=== PATIENT | female | born 1985 | race Caucasian/White ===

== ENCOUNTER 2020-02-11 15:58 | Observation (INO) | payer OTHER, SELFPAY ==
[2020-02-11] MEDS ORDERED: KETOROLAC TROMETHAMINE INJ 30 MG/ML VIAL IV ONE (16:11)
[2020-02-11] MEDS ORDERED: SODIUM CHLORIDE 0.9% 1000ML 1,000 ML IVS ONE ×2 (16:11→18:27)
[2020-02-11] MEDS ORDERED: PIPERACILLIN/TAZOBACTAM 3.375 GM in SODIUM CHLORIDE 0.9% 100ML 100 ML IVPB ONE (17:02)
[2020-02-11] MEDS ORDERED: POTASSIUM CHLORIDE ELIXIR 20 MEQ/15 ML UD PO ONE (17:21)
--- NOTE | 2020-02-11 18:13 | CT ---
PROCEDURE: CT Abdomen and Pelvis With Intravenous Contrast CLINICAL INDICATION: The patient is 34 years years old, Female; 3d rlq pain, 17k wbc, dirty ua TECHNIQUE: Axial computed tomography images of the abdomen and pelvis with intravenous contrast. Sagittal and coronal reformatted images were created and reviewed. This CT exam was performed using one or more of the following dose reduction techniques: automated exposure control, adjustment of the mA and/or kV according to patient size, and/or use of iterative reconstruction technique. COMPARISON: No relevant prior studies available. FINDINGS: LUNG BASES: Unremarkable. No mass. No consolidation. No pleural effusions or pneumothoraces. PLEURAL SPACE: The visualized lung bases show no evidence of mass, gross consolidation, pleural effusions or pneumothoraces. ABDOMEN: LIVER: The liver is enlarged, measuring 22.3 cm longitudinally in the right lobe. There are no focal defects in the liver. There is no biliary ductal dilatation. GALLBLADDER AND BILE DUCTS: The gallbladder is absent status post cholecystectomy with surgical clips in the gallbladder fossa. PANCREAS: Unremarkable. No ductal dilatation, inflammatory changes or mass. SPLEEN: Unremarkable. No splenomegaly or focal defects. ADRENALS: Unremarkable. No mass or calcification. KIDNEYS AND URETERS: There are perfusion defects in the upper pole of the right kidney with slight reticulation in the perinephric fat superiorly and laterally concerning for acute pyelonephritis. There is also mild thickening and enhancement of the right ureter concerning for infection. There is no evidence of hydronephrosis or nephrolithiasis. STOMACH AND BOWEL: Fluid-filled colon suggests hypersecretion or poor colonic water resorption as may occur with nonspecific gastroenteritis/enteritis or colitis. Areas of mural thickening in the sigmoid colon and rectum may relate to nondistention versus nonspecific inflammatory changes. PELVIS: APPENDIX: The appendix is present and appears normal. There are no findings of acute appendicitis. BLADDER: Unremarkable, allowing for the degree of distention. There is no evidence of cystolithiasis or bladder mass. REPRODUCTIVE: Varicose appearing left periuterine veins may indicate pelvic congestion syndrome. ABDOMEN and PELVIS: INTRAPERITONEAL SPACE: There is no evidence of free air or free fluid. BONES/JOINTS: There is no evidence of acute fracture, osseous destruction or osteoblastic changes. SOFT TISSUES: Unremarkable. VASCULATURE: See above. LYMPH NODES: Unremarkable. There is no evidence of mesenteric, retroperitoneal, pelvic or inguinal adenopathy. TUBES, LINES AND DEVICES: The uterus is present and appears unremarkable with the exception of the presence of an intrauterine device. There are no adnexal cysts or masses. OTHER FINDINGS: The right periareolar region appears somewhat thickened. . IMPRESSION: 1. Findings concerning for acute right pyelonephritis and ureteritis. 2. Mild hepatomegaly. 3. Fluid-filled colon suggests hypersecretion or poor colonic water resorption as may occur with nonspecific gastroenteritis/enteritis or colitis. 4. Areas of mural thickening in the sigmoid colon and rectum may relate to nondistention versus nonspecific inflammatory changes. 5. The right periareolar region appears somewhat thickened. Recommend correlation with clinical exam and mammography if clinically indicated. Electronically signed by: Cynthia Seals MD 02/11/2020 6:11 PM CDT
[2020-02-11] MEDS ORDERED: levoFLOXacin 500MG IV 500 MG in PREMIX BAG 1 BAG IVPB ONE (18:27)
--- NOTE | 2020-02-11 18:41 | ED.PDOC ---
History of Present Illness - General Chief Complaint: Abdominal Pain Stated Complaint: DE [place],fever,constipation Time Seen by Provider: 02/11/20 16:06 Source: patient Exam Limitations: no limitations - History of Present Illness Initial Comments: 34 yo female with right abd pain for the last 4 days. no vomiting but mild nausea. decreased oral intake. no idarrhea, mild constipation. no recent illness. reports fever, diaphoretic here. Timing/Duration: other - 4d Severity: moderate Improving Factors: nothing Worsening Factors: nothing Associated Symptoms: fever/chills, loss of appetite, malaise Allergies/Adverse Reactions: Allergies NO KNOWN ALLERGY Allergy (Verified 02/11/20 16:13) Home Medications: Ambulatory Orders NK 02/11/20 Review of Systems - Review of Systems Constitutional: States: fever, malaise EENTM: States: no symptoms reported Respiratory: States: no symptoms reported Cardiology: States: no symptoms reported Gastrointestinal/Abdominal: States: abdominal pain, constipation, nausea Genitourinary: States: frequency Musculoskeletal: States: back pain Skin: States: no symptoms reported Neurological: States: no symptoms reported Endocrine: States: excessive sweating All other Systems: No Change from Baseline Past Medical History (General) - Patient Medical History Hx Stroke: No Hx Congestive Heart Failure: No Hx Diabetes: No Surgical History: cholecystectomy - Vaccination History Hx Influenza Vaccination: No - Social History Hx Tobacco Use: No - Female History Patient is a Female of Child Bearing Age (10 -59 yrs old): Yes - has an IUD Family Medical History - Family History Mother Family History: Unknown Living Status: Unknown Physical Exam - Physical Exam General Appearance: Alert, Ill Appearing Eye Exam: bilateral normal Ears, Nose, Throat: hearing grossly normal, normal pharynx Neck: full range of motion, supple Respiratory: lungs clear, normal breath sounds, no respiratory distress, no accessory muscle use Cardiovascular/Chest: normal peripheral pulses, regular rate, rhythm, no edema, other - i feel no defintie abnormal tissue of the right breast. no skin changes. no pain. Peripheral Pulses: radial,right: 2+, radial,left: 2+, dorsalis pedis,right: 2+, dorsalis pedis,left: 2+ Gastrointestinal/Abdominal: soft, other - diffues rt sided discomfort to palp. no palp mass. no guarding. 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, alert, normal mood/affect, oriented x 3 Skin Exam: normal color Comments: Vital Signs - 24 hr 02/11/20 02/11/20 02/11/20 16:08 17:00 18:04 Temperature 99.6 F Pulse Rate [ 93 H 80 80 Right Brachial] Respiratory 20 18 16 Rate Blood Pressure 113/71 101/64 95/63 [Right Arm] O2 Sat by Pulse 98 98 96 Oximetry Laboratory Tests 02/11/20 02/11/20 02/11/20 16:26 16:26 16:26 WBC 17.2 H RBC 4.08 L Hgb 13.1 Hct 37.9 MCV 92.9 MCH 32.1 H MCHC 34.6 RDW 12.8 Plt Count 198 MPV 9.0 Absolute Neuts (auto) 14.90 H Absolute Lymphs (auto) 0.80 L Absolute Monos (auto) 1.50 H Absolute Eos (auto) 0.00 Absolute Basos (auto) 0.10 Neutrophils % 86.5 H Lymphocytes % 4.7 L Monocytes % 8.4 Eosinophils % 0.0 L Basophils % 0.4 D-Dimer, Quantitative 954 H* Sodium 134 L Potassium 3.0 L Chloride 102 Carbon Dioxide 19 L Anion Gap 16.0 BUN 6 L Creatinine 0.87 BUN/Creatinine Ratio 6.9 L Random Glucose 105 Serum Osmolality 266.2 L Lactic Acid Calcium 8.7 Total Bilirubin 1.4 H AST 19 ALT 16 Alkaline Phosphatase 56 Creatine Kinase 199 H CK-MB (CK-2) 0.5 CK-MB (CK-2) % Not Reportable Troponin I < 0.02 Serum Total Protein 7.3 Albumin 3.5 Globulin 3.8 H Albumin/Globulin Ratio 0.9 L Amylase 38 Lipase 23 Serum HCG, Qual Urine Color Urine Appearance Urine pH Ur Specific [place] Urine Protein Urine Glucose (UA) Urine Ketones Urine Blood Urine Nitrite Urine Bilirubin Urine Urobilinogen Ur Leukocyte Esterase Urine RBC Urine WBC Ur Epithelial Cells Urine Bacteria 02/11/20 02/11/20 02/11/20 16:26 16:26 16:26 WBC RBC Hgb Hct MCV MCH MCHC RDW Plt Count MPV Absolute Neuts (auto) Absolute Lymphs (auto) Absolute Monos (auto) Absolute Eos (auto) Absolute Basos (auto) Neutrophils % Lymphocytes % Monocytes % Eosinophils % Basophils % D-Dimer, Quantitative Sodium Potassium Chloride Carbon Dioxide Anion Gap BUN Creatinine BUN/Creatinine Ratio Random Glucose Serum Osmolality Lactic Acid 0.9 Calcium Total Bilirubin AST ALT Alkaline Phosphatase Creatine Kinase CK-MB (CK-2) CK-MB (CK-2) % Troponin I Serum Total Protein Albumin Globulin Albumin/Globulin Ratio Amylase Lipase Serum HCG, Qual Negative Urine Color Yellow Urine Appearance Clear Urine pH 5.5 Ur Specific [place] 1.010 Urine Protein 30 Urine Glucose (UA) Negative Urine Ketones 80 H Urine Blood Moderate H Urine Nitrite Positive H Urine Bilirubin Negative Urine Urobilinogen 2.0 H Ur Leukocyte Esterase Trace H Urine RBC 10-20 H Urine WBC 3-5 H Ur Epithelial Cells 3-5 Urine Bacteria 1+ ct abd and pelvis with contrast shows right sided pyelo without defintie obstruction. sigmoid changes likely related to decompression. see report for details. Progress - Progress Progress: 02/11/20 18:44 34 yo female with rty sided pyelonephritis. early sepsis as well. receiving 2L ivf and started on zosyn and levaquin after cultures. admit for further monitoring and treatment. patient in agreement. treat hypokalemia as well. toradol worked well for pain x1. aleksandra bashir [id number] Departure - Departure Clinical Impression: Pyelonephritis, Hypokalemia Sepsis Qualifiers: Sepsis type: sepsis due to unspecified organism Sepsis acute organ dysfunction status: without acute organ dysfunction Qualified Code(s): A41.9 - Sepsis, unspecified organism Disposition: Admit Patient Departure Forms: ED Discharge - Pt. Copy, Patient Portal Self Enrollment Home Medications: Ambulatory Orders NK 02/11/20 Decision To Admit - Decistion To Admit Decision to Admit Reason: Medical Nature Decision to Admit Date: 02/11/20 Decision to Admit Time: 18:47
--- NOTE | 2020-02-11 19:52 | HP ---
SUPERVISING PHYSICIAN: Eze Maldonado MD CHIEF COMPLAINT: Left flank pain. HISTORY OF PRESENT ILLNESS: Ms. Orourke is a 34 year-old female patient who presented to the Emergency Room late last night complaining of right-sided abdominal pain extending from her right flank down into her pelvic area for the last 4 days. She denied any vomiting but had some mild nausea associate with it and has not been able to have much oral intake. She has no history of urinary tract infections, no significant medical history. Laboratory studies did show she had a significant urinary infection with positive nitrites, 10 to 20 RBCs, 3 to 5 WBCs with 1+ bacteria. CT of the abdomen and pelvis with contrast showed findings concerning for acute pyelonephritis ureteris with some mild hepatomegaly. She was given antibiotics in the Emergency Room including Levaquin and Zosyn. Additional laboratory studies showed she had a leukocytosis of 17,200 with a left shift. Chemistries showed a mild low potassium at 3.4, sodium 134, magnesium low at 1.6. Total bilirubin was a little elevated at 1.4. Other than that, liver functions were all within normal limits. Troponin less than 0.02, urine HCG was negative. Lipase and amylase were both normal. Given the findings concerning for pyelonephritis with the patient showing to just mildly febrile at 99.6 but hemodynamically stable with 113/70 blood pressure, mildly tachycardiac at 93, oxygen saturation 98% on room air, it was felt that she would benefit from initiation of IV antibiotics and further hydration in efforts to prevent complications due to sepsis due to pyelonephritis. She was admitted in stable condition. PAST MEDICAL HISTORY: No significant medical history mentioned. PAST SURGICAL HISTORY: 1. Cholecystectomy. 2. Left ankle repair. CURRENT MEDICATIONS: 1. IUD. No other chronic medication. ALLERGIES: No known drug allergies. FAMILY HISTORY: Noncontributory to current plan of care. SOCIAL HISTORY: The patient lives in [place], [place]. She is . She has 4 children. 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 She denies any tobacco use but admits she drinks fairly frequently throughout the week on a social occasion. She is single, she does have a boyfriend. REVIEW OF SYSTEMS: CONSTITUTIONAL: Positive for fever and general malaise, weakness. HEENT: She does have a headache but denies vision changes, sore throat. nasal congestion, earaches. CHEST: Denies shortness of breath, wheezing or coughing. HEART: Denies chest pain, palpitations, tachycardia or syncopal episodes. ABDOMEN: Positive for mild abdominal pain with left CVA tenderness and has problems with constipation, had some nausea, denies emesis. GENITOURINARY: Reports that she has had some increased frequency with some dysuria for the last 4 to 5 days. Denies discharges.. MUSCULOSKELETAL: Positive for right-sided back pain.. SKIN: Denies lesions, rashes, or unexplained changes. NEUROLOGIC: Denies ataxia, seizures, focal deficits. HEMATOLOGICAL: Denies unexplained bleeding, easy bruising or transfusion reactions. PHYSICAL EXAMINATION: VITAL SIGNS: Temperature initially on presentation was 99.6, pulse 93, blood pressure 113/71, respirations 20, oxygen saturation 98% on room air. GENERAL: Patient does appear ill-appearing and overall not feeling well but does not seem to be in any distress. She looks a little dehydrated but well- nourished. She is alert. HEENT: Tympanic membranes clear bilaterally. Oropharynx is pink with mildly dry mucous membranes. NECK: Supple, non-tender, full range of motion. No jugular venous distention. CHEST: Clear to auscultation bilaterally without rhonchi, rales, or wheezes. CARDIOVASCULAR: Regular rate and rhythm without appreciable murmurs, rubs, or gallops. ABDOMEN: Soft with some diffuse tenderness on the right side, more so with CVA tenderness with some discomfort on palpation in the pelvic area but no masses, no guarding, no rebound tenderness, no peritoneal signs. EXTREMITIES: No cyanosis, clubbing, or edema. BACK: Right-sided CVA tenderness. NEUROLOGIC: She is alert and oriented x3 with cranial nerves II through XII grossly intact. SKIN: Warm, pink and dry. RECTAL: Deferred. LABORATORY: White count 17,200 with a left shift. Coagulation showed an elevated D-dimer. Chemistries showed sodium 134, potassium 3.0, BUN 6, creatinine 0.87, magnesium 1.6, calcium 8.7, bilirubin slightly elevated at 1.4. Troponin less than 0.02. Lipase and amylase both normal. Urine HCG negative. Urine showed 80 of ketones with moderate amount of blood, positive nitrites with trace leukoprotease. Microscopic revealed 10 to 20 RBCs, 3 to 5 WBCs, 3 to 5 epithelials, 1+ bacteria. GC, Chlamydia, RNA testing pending on urine. MICROBIOLOGY: Urine cultures pending. Blood cultures. RADIOLOGY: Abdomen/pelvis CT with contrast per radiology interpretation showed findings concerning for acute right pyelonephritis and ureteritis with mild hepatomegaly. Please see report for full details. ASSESSMENT: 1. Urinary tract infection with uritis and acute pyelonephritis without any evidence of obstruction or abscess. Cultures pending. 2. Sepsis secondary to #1. 3. Ureteritis with patient having high risk factors for STDS with GC, Chlamydia pending. 4. Mild electrolyte imbalance in the form of hypokalemia and hyponatremia. 5. Elevated D-dimer with no signs of PE or low risk factors, likely elevated from ongoing infectious process in the form of pyelonephritis. PLAN: The patient is going to be admitted for treatment of pyelonephritis with Levaquin and given that she does have risk factors for possible STD and is age 34 and not , at this point we will go ahead and treat her with testing pending. I will give her one gram of azithromycin and Rocephin 250 mg IM. She will be on IV fluids. We will recheck labs in the morning. She will have Tylenol and Motrin for pain and fever control. I would anticipate her length of stay to be at least 2 to 3 days. She has no medications chronically. She will be on DVT prophylaxis per protocol. Until we can transition her to outpatient management, we will await final culture results and target antibiotic therapy as appropriate and continue to monitor and treat as needed #[id number] [facility]TDD
[2020-02-11] MEDS ORDERED: ONDANSETRON INJ 4 MG/2 ML VIAL IV PRN (21:08)
[2020-02-11] MEDS ORDERED: ALUM & MAG HYDROX-SIMETHICONE 30 ML UD PO PRN (21:08)
[2020-02-11] MEDS ORDERED: MAGNESIUM HYDROXIDE 30 ML UD PO PRN (21:08)
[2020-02-11] MEDS ORDERED: SODIUM CHLORIDE 0.9% (FLUSH) 10 ML SYG IV PRN (21:08)
[2020-02-11] MEDS ORDERED: IV SET AND CAP CHANGE INJ INJ SCH (21:30)
[2020-02-11] MEDS: KETOROLAC TROMETHAMINE INJ 30 MG/ML VIAL IV SCH (21:32)
[2020-02-11] MEDS: ENOXAPARIN SODIUM 40 MG/0.4 ML SYG SUBCU SCH (21:32)
[2020-02-11] MEDS: KCL 40MEQ/NS 1,000 ML IVS PRN (21:32)
[2020-02-11] MEDS ORDERED: MAGNESIUM SULFATE PREMIX 2GM 2 GM in PREMIX BAG 1 BAG IVPB ONE (23:00)
[2020-02-11] MEDS ORDERED: MAGNESIUM SULFATE PREMIX 2GM 50 ML IVPB ONE (23:26)
[2020-02-12] MEDS ORDERED: SODIUM CHLORIDE 0.9% 1000ML 1,000 ML ONE (00:39)
[2020-02-12] MEDS: KETOROLAC TROMETHAMINE INJ 30 MG/ML VIAL IV SCH ×4 (03:24→21:04)
[2020-02-12] MEDS: KCL 40MEQ/NS 1,000 ML IVS PRN (05:33)
[2020-02-12] MEDS: levoFLOXacin 750MG IV 750 MG in PREMIX BAG 1 BAG IVPB SCH (08:38)
[2020-02-12] MEDS: ACETAMINOPHEN 325 MG TAB PO PRN ×2 (10:26→18:46)
[2020-02-12] MEDS ORDERED: AZITHROMYCIN 250 MG TAB PO ONE (12:03)
[2020-02-12] MEDS ORDERED: SODIUM CHLORIDE 0.9% (FLUSH) 10 ML SYG IV ONE (12:04)
[2020-02-12] MEDS ORDERED: LIDOCAINE 1% 2 ML VIAL INJ ONE (13:16)
--- NOTE | 2020-02-12 19:59 | PN ---
SUPERVISING PHYSICIAN: Eze Maldonado MD DATE: 02/12/20 SUBJECTIVE: The patient is still having quite a bit of pain in her right flank pain. She says she certainly does not feel well. She has not actually had any nausea, but she has also had a mild headache in the frontal area. She said the Toradol did help. I did discuss with her that we will go ahead and put her on a little oxygen and see if this will also help with this migraine. She has had adequate p.o. intake. I discussed with her that we would saline lock her except for IV antibiotics as long as she has adequate intake. She has remained afebrile since admission with T-max 99.5. OBJECTIVE: VITAL SIGNS: Temperature 99.5, pulse 78, blood pressure 94/61, respirations 16, saturation 95% on room air. GENERAL: The patient does appear ill and tired, but does not look to be in any acute distress. CHEST: Lungs are clear to auscultation. HEART: Regular rate and rhythm. ABDOMEN: Soft with some continued CVA tenderness noted on the right, none on the left. NEUROLOGIC: Alert and oriented times three. LABORATORY: GC, chlamydia RNA still pending. Repeat CBC this morning showed white count down to 12,500 with persistent left shift, but no bands. Her chemistries now normalized potassium and sodium. BUN 6, creatinine 0.76, calcium 7.1 but her albumin is 2.7, so that should correct around 8.4. Liver functions all within normal limits. MICROBIOLOGY: Urine culture pending. Blood cultures pending. Preliminary culture results did show a gram negative bacilli. RADIOLOGY: No additional radiographic studies today. ASSESSMENT: 1. Urinary tract infection with uritis and acute pyelonephritis without any evidence of obstruction or abscess. Preliminary cultures showing a gram negative sotero, likely Escherichia coli, but again we will await culture results. 2. Sepsis secondary to #1, showing improvement with IV Levaquin. 3. Ureteritis with patient having high risk factors for STDs with GC, Chlamydia pending with treatment with p.o. azithromycin and IM Rocephin. 4. Electrolyte imbalance, now normalized. 5. Elevated D-dimer, likely due to ongoing infectious process and inflammatory marker from pyelonephritis. No evidence of any kind of pulmonary embolism on clinical assessment. 6. Frontal headache, resolving with Toradol and oxygen. PLAN: We will continue with current treatment plan at this point with Levaquin. She has had adequate IV fluids. At this point, we will saline lock her as long as she can continue with adequate p.o. intake. She is on DVT prophylaxis per protocol. I did treat her with Rocephin and azithromycin for the questionable GC and those tests are pending. We will plan to recheck labs in the morning. We will continue with Tylenol, Motrin and Toradol as needed for any pain control. As long as she is showing good resolution of her symptoms and we get culture back, I anticipate she could probably discharge in the next two to three days. Certain if she is not showing expected clinical improvement, we may need to re-image with ultrasound to make sure she has not formed an abscess. We will continue to monitor that daily. Until the patient can transition to outpatient management, we will continue to monitor and treat as needed. #[id number] [facility]
[2020-02-12] MEDS: ENOXAPARIN SODIUM 40 MG/0.4 ML SYG SUBCU SCH (21:04)
[2020-02-13] MEDS: KETOROLAC TROMETHAMINE INJ 30 MG/ML VIAL IV SCH ×2 (03:35→08:30)
[2020-02-13] MEDS: levoFLOXacin 750MG IV 750 MG in PREMIX BAG 1 BAG IVPB SCH (08:26)
--- NOTE | 2020-02-13 11:29 | US ---
EXAM DESCRIPTION: Renal: Ultrasound. CLINICAL HISTORY: 34 years Female pyelo COMPARISON: Abdominal pelvic CT scan February 11, 2020. TECHNIQUE: Transcutaneous scanning: Two-dimensional and Doppler modes. FINDINGS: Right kidney measures 12.2 x 5.6 x 6.4 cm; volume 229.5 mL. Partially duplicated. Mid-renal cortical thickness 11 mm. . Heterogeneous echogenicity equal to the liver, with intermediate echoes extending to the capsule.. No hydronephrosis No echogenic stones. Lobulated contour of the kidney with no perinephric fluid. Normal vascularity. Proximal ureter not visualized.. Left kidney measures 10.7 x 6.3 x 6.2 cm; volume 217 mL. Partially duplicated. Mid-renal cortical thickness 14 mm.. Normal echogenicity. No hydronephrosis. No echogenic stones. Lobulated contour of the kidney with no perinephric fluid. Normal vascularity.. Proximal ureter not visualized.. Urinary bladder was visualized. Prevoid volume of bladder 107.3 mL. Ureteral jet in the bladder not seen by Doppler. Patient did not void. Abdominal aorta: Normal caliber from the proximal segment to the distal bifurcation with atherosclerotic changes. IMPRESSION: 1. Medical renal disease bilateral kidneys more right than left. Both kidneys partially duplicated. No mass, no complex cyst, but heterogeneous right renal cortical lesions extending to the capsule could represent pyelonephritis. No cortical lesions in the left kidney. No hydronephrosis or renal calcifications bilaterally. Proximal ureters not seen. 2. Minimal fluid in the urinary bladder. Patient did not void. Normal caliber of the abdominal aorta.. Electronically signed by: Matthieu Montenegro MD 02/13/2020 11:28 AM CDT
[2020-02-13] MEDS: ACETAMINOPHEN 325 MG TAB PO PRN (12:19)
[2020-02-13] MEDS ORDERED: traMADol HCL 50 MG TAB PO ONE (12:29)
[2020-02-13 13:01] VITALS: BP 99/59; TEMP 98.3; O2SAT 98
--- NOTE | 2020-02-13 14:32 | DS ---
SUPERVISING PHYSICIAN: Eze Maldonado MD ADMISSION DIAGNOSIS: 1. Urinary tract infection with uritis and acute pyelonephritis without any evidence of obstruction or abscess. Cultures pending. 2. Sepsis secondary to #1. 3. Ureteritis with patient having high risk factors for STDs with GC, Chlamydia pending. 4. Mild electrolyte imbalance in the form of hypokalemia and hyponatremia. 5. Elevated D-dimer with no signs of PE or low risk factors, likely elevated from ongoing infectious process in the form of pyelonephritis. DISCHARGE DIAGNOSIS: 1. Urinary tract infection with uritis and acute pyelonephritis without any evidence of obstruction or abscess. Preliminary cultures showing a gram negative sotero, likely Escherichia coli, but again we will await culture results. 2. Sepsis secondary to #1, showing improvement with IV Levaquin. 3. Ureteritis with patient having high risk factors for STDs with GC, Chlamydia pending with treatment with p.o. azithromycin and IM Rocephin. 4. Electrolyte imbalance, now normalized. 5. Elevated D-dimer, likely due to ongoing infectious process and inflammatory marker from pyelonephritis. No evidence of any kind of pulmonary embolism on clinical assessment. 6. Frontal headache, resolving with Toradol and oxygen. HISTORY OF PRESENT ILLNESS: Ms. Griffin is a 34 year-old female patient who presented to the Emergency Room late last night complaining of right-sided abdominal pain extending from her right flank down into her pelvic area for the last 4 days. She denied any vomiting but had some mild nausea associate with it and has not been able to have much oral intake. She has no history of urinary tract infections, no significant medical history. Laboratory studies did show she had a significant urinary infection with positive nitrites, 10 to 20 RBCs, 3 to 5 WBCs with 1+ bacteria. CT of the abdomen and pelvis with contrast showed findings concerning for acute pyelonephritis ureteris with some mild hepatomegaly. She was given antibiotics in the Emergency Room including Levaquin and Zosyn. Additional laboratory studies showed she had a leukocytosis of 17,200 with a left shift. Chemistries showed a mild low potassium at 3.4, sodium 134, magnesium low at 1.6. Total bilirubin was a little elevated at 1.4. Other than that, liver functions were all within normal limits. Troponin less than 0.02, urine HCG was negative. Lipase and amylase were both normal. Given the findings concerning for pyelonephritis with the patient showing to just mildly febrile at 99.6 but hemodynamically stable with 113/70 blood pressure, mildly tachycardiac at 93, oxygen saturation 98% on room air, it was felt that she would benefit from initiation of IV antibiotics and further hydration in efforts to prevent complications due to sepsis due to pyelonephritis. She was admitted in stable condition. HOSPITAL COURSE: The patient was admitted for treatment of pyelonephritis with Levaquin and due to her increased risk factors for possible STDs, she was treated with azithromycin and Rocephin. She was given IV fluids. Her labs was watched closely. She was put on Lovenox for DVT prophylaxis. She did complain of a headache, but they were relieved with Tylenol, Toradol and tramadol. Her pain improved significantly. Her STD panel and her urine culture are both pending as well as her blood cultures. She will be discharged home today in stable condition. LABORATORY: WBCs started at 17,200 and have normalized to 8.9 with stable hemoglobin of 11.1 and hematocrit 32.4. There is no left shift on her differential. Her electrolytes are basically within normal limits. She did have a low magnesium initially and received supplementation and it has come up to 1.8. Calcium is slightly low at 7.7. GC Chlamydia are pending. Cultures are pending. Renal ultrasound from today shows 1) Medical renal disease bilateral kidneys, more right than left. Both kidneys partially duplicated. No mass, no complex cysts, but heterogeneous right renal cortical lesions extending into the capsule could represent pyelonephritis. No cortical lesion in the left kidney. No hydronephrosis or renal calcifications bilaterally. Proximal ureters not seen. 2) Minimal fluid in the urinary bladder. The patient did not void. Normal caliber of the abdominal aorta. All other labs and films have been reviewed via the EMR. DISCHARGE PLAN: The patient will be discharged home in stable condition. She is to resume her previous diet and increase her activity as tolerated. She is to followup with Kike Gipson within the next 1 to 2 weeks to review her ultrasound and possible followup with companion caregiver. She has no routine medications, so I have sent her home with some Ketoralac, 7 days of Levaquin, some Zofran and some tramadol. [facility] was reviewed and there were no issues found. She is to return to the hospital or followup with Kike Gipson for any problems or complications. DISCHARGE MEDICATIONS: 1. Toradol. 2. Levaquin. 3. Zofran. 4. Tramadol. #[id number] [facility]
== END 2020-02-13 14:20 | disposition home or self-care (01) ==
LOC: ER 15:58 → OBSVTOIN 19:51 → INTOOBSV 19:51 → MS 19:51
PROVIDERS: ADMIT Nurse Practitioner Family; ATTEND Nurse Practitioner Acute Care
DX: A41.9 Sepsis, unspecified organism (principal); N10 Acute pyelonephritis; N39.0 Urinary tract infection, site not specified; B96.89 Other specified bacterial agents as the cause of diseases classified elsewhere; N28.89 Other specified disorders of kidney and ureter; E87.8 Other disorders of electrolyte and fluid balance, not elsewhere classified; E87.6 Hypokalemia; E87.1 Hypo-osmolality and hyponatremia; E83.42 Hypomagnesemia; E83.51 Hypocalcemia; R79.89 Other specified abnormal findings of blood chemistry; R51 Headache; R16.0 Hepatomegaly, not elsewhere classified; Z97.5 Presence of (intrauterine) contraceptive device; Z90.49 Acquired absence of other specified parts of digestive tract
CPT/HCPCS: 96361; 96366 ×2; 96367; 96365; 96375; 96376 ×3; 96372 ×2; Q0144; J0696; J1885 ×8; J1956 ×3; J2543; J7030 ×3; J1650 ×2; J3475; J7050; J3480 ×2; 85379; 82553; 80053 ×2; 87086; 36415 ×4; 82150; 87077; 87186; 81001; 85025 ×3; 82550; 87040 ×2; 84703; 83690; 83735 ×2; 84484; 83605; 87491; 87591; 74177; 76775; 94760 ×2; 99285; G0378 ×2